=== PATIENT | female | born 1995 | race Caucasian/White ===

== ENCOUNTER 2020-03-12 01:12 | Inpatient (IN) | payer BC ==
[2020-03-12] MEDS: LABETALOL 200 MG TAB PO STA ×2 (01:49→13:16)
[2020-03-12 02:31] LABS: Basophils % (A) 0 %; Eosinophils # (A) 0.2 k/uL (0-0.7); Eosinophils % (A) 1 %; HCT 35.3 % (34.0-46.0); HGB 11.6 gm/dL (11.4-16.0); Lymphocytes # (A) 1.9 k/uL (1.0-4.8); Lymphocytes % (A) 15 %; MCH 26.5 pg (25.0-35.0); MCHC 32.8 g/dL (31.0-37.0); MCV 80.8 fL (80.0-100.0); Mean Platelet Volume 9.9; Monocytes # (A) 0.6 k/uL (0-1.0); Monocytes % (A) 5 %; Neutrophils # (A) 9.8 k/uL (1.3-7.7); Neutrophils % (A) 77 %; Platelet Count 241 k/uL (150-450); RBC 4.37 m/uL (3.80-5.40); RDW 14.1 % (11.5-15.5); WBC 12.6 k/uL (3.8-10.6)
[2020-03-12 02:46] LABS: Uric Acid 6.4 mg/dL (3.7-7.4)
[2020-03-12] MEDS ORDERED: TERBUTALINE 1 MG/ML VIAL SQ PRN (02:59)
[2020-03-12] MEDS ORDERED: LIDOCAINE 0.5% (PF) 5 MG/ML (50 ML SDV) SQ PRN (02:59)
[2020-03-12] MEDS ORDERED: CARBOPROST TROMETHAMINE 250 MCG/ML 1 ML AMP IM PRN (02:59)
[2020-03-12] MEDS ORDERED: OXYTOCIN 10 UNIT/ML 1 ML VIAL IM PRN (02:59)
[2020-03-12] MEDS ORDERED: METHYLERGONOVINE 0.2 MG/ML 1 ML AMP IM PRN (02:59)
[2020-03-12] MEDS: LACTATED RINGERS 1,000 ML IV SCH ×3 (03:15→08:50)
[2020-03-12] MEDS ORDERED: OXYTOCIN 30 UNITS/500 ML NS 30 UNIT in SALINE 1 500ML.BAG IV SCH (07:00)
--- NOTE | 2020-03-12 08:49 | P.HPOB ---
History of Present Illness H&P Date: 03/12/20 Chief Complaint: Strong uterine contractions This is a 24-year-old white female 1 para 0 EDC 03/14/2020 at 39-5/7 weeks' gestation. Patient presented with strong regular uterine contractions from home. Fetus is been active throughout the . She denied vaginal bleeding or fluid leakage. Fetus is been active throughout the . history is significant for gestational hypertension, on labetalol 200 mg twice a day. Blood type is O+, rubella status immune. VDRL testing, urine culture, group B strep cultures, hepatitis B surface antigen, HIV testing, urine culture all negative. One-hour Glucola 95. Current medications vitamins daily, labetalol 200 mg twice daily, and Synthroid 100 MCG's daily. Social history patient is single, she has never been a smoker, she denies alcohol or drug use. Family history significant for dementia, and heart disease. ALLERGIES none known On exam patient is 5 foot 6 inches, 212 pounds blood pressure on admission 169/109, currently 120s over 70s. The general physical exam is within normal limits. No peripheral edema is noted. Chest is clear. Cervix at time of this dictation is 7 cm dilated, 100% effaced, -1 to -2 station, vertex presentation. Spontaneous amniorrhexis occurred approximately 1 hour ago for clear fluid. heart rate is in the 140s with frequent accelerations and occasional variable decelerations. Overall reassuring status. Impression: 39-5/7 weeks intrauterine , chronic hypertensive, hypothyroidism, now in active labor. Plan: Oxytocin augmentation per protocol. Close maternal and surveillance. Internal scalp lead is applied. Epidural was already infusing. Anticipate normal spontaneous vaginal delivery. Past surgical history is negative. Past medical history hypertension, hypothyroidism, ulcerative disease. Review of Systems Constitutional: Reports as per HPI Past Medical History Past Medical History: Hypertension, Thyroid Disorder History of Any Multi-Drug Resistant Organisms: None Reported Past Surgical History: No Surgical Hx Reported Past Anesthesia/Blood Transfusion Reactions: No Reported Reaction Past Psychological History: No Psychological Hx Reported Smoking Status: Never smoker Past Alcohol Use History: None Reported Past Drug Use History: None Reported - Past Family History Father Additional Family Medical History / Comment(s): Heart condition Medications and Allergies Home Medications Medication Instructions Recorded Confirmed Type Labetalol [Trandate] 200 mg PO BID 03/12/20 03/12/20 History Levothyroxine Sodium [Synthroid] 100 mcg PO DAILY 03/12/20 03/12/20 History Allergies Allergy/AdvReac Type Severity Reaction Status Date / Time No Known Allergies Allergy Verified 03/12/20 01:18 Exam Vital Signs Temp Pulse Resp BP Pulse Ox 03/12/20 03:30 98.6 F 91 18 146/85 98 03/12/20 01:40 98.1 F 100 18 169/109 98 Intake and Output 03/11/20 03/12/20 03/12/20 22:59 06:59 14:59 Output Total 200 Balance -200 Output: Urine 200 Other: Weight 96.162 kg See dictation under HPI please Results Result Diagrams: 03/12/20 02:05 Abnormal Lab Results - Last 24 Hours (Table) 03/12/20 Range/Units 02:05 WBC 12.6 H (3.8-10.6) k/uL Neutrophils # 9.8 H (1.3-7.7) k/uL Assessment and Plan Assessment: 39-5/7 weeks intrauterine , spontaneous active labor. Chronic hypertension, hypothyroidism, obesity all noted. Plan: Continue oxytocin augmentation. Continue close maternal and surveillance. Anticipate normal spontaneous vaginal delivery. Time with Patient: Less than 30
--- NOTE | 2020-03-12 13:01 | P.PROBDLV ---
Vaginal Delivery Note - . Vaginal Delivery Note: This is a 24-year-old white female 1 para 0 EDC 03/14/2020 at 39-5/7 weeks' gestation. Patient presented earlier this morning with strong regular uterine contractions from home. Fetus is been active throughout the . is remarkable for history of chronic hypertension, blood pressure is stable on labetalol 200 mg twice daily. Please see admitting history and physical for details. Spontaneous amniorrhexis revealed clear fluid. Oxytocin was started and titrated per hospital protocol. Epidural was placed per her request. All preeclamptic labs were checked and were within normal limits. Patient progressed well through the first stage of labor and became completely dilated at 1150 hours. She began the second stage of labor at that time. Occasional variable decelerations were noted, type I decelerations as well. Excellent overall [id number] variability maintained on an internal scalp lead. With excellent maternal expulsive efforts ultimately the crowned. The perineal body was prepped and draped in usual sterile fashion. Infant delivered occiput anterior and restituted accordingly. There was a large 4 coming loop of umbilical cord that presented with the head as well. The right or anterior shoulder was delivered from underneath the pubic symphysis at which time the oropharynx, nasopharynx, and external nares were all bulb suctioned on the perineal body. Patient was officially delivered of a liveborn female infant at 1237 hours. Umbilical cord was doubly clamped and ligated, she was handed to waiting nurses for evaluation where scores of 9 and 9 at one and 5 minutes respectively were given. Placenta delivered spontaneously, it was inspected and noted to be intact with trivascular cord at 1241 hours. Perineal body was then carefully inspected. The cervix, vagina, perineum, periurethral, and perirectal areas all appeared within the normal limits with the exception of the small first-degree perineal laceration at 6:00. This was injected with 1% lidocaine and repaired in the usual fashion using P suture. Uterus is massaged, firm and below the umbilicus. Total estimated blood loss 400 mL's. weighed 6 lbs. 10 oz. or 3015 g. Patient is allowed to begin the bonding experience in the LDR.
[2020-03-12] MEDS ORDERED: BENZOCAINE/MENTHOL SPRAY 1 GM/SPRAY AEROSOL TOPICAL PRN (13:02)
[2020-03-12] MEDS ORDERED: diphenhydrAMINE 50 MG CAP PO PRN (13:02)
[2020-03-12] MEDS ORDERED: ZOLPIDEM 5 MG TAB PO PRN (13:02)
[2020-03-12] MEDS ORDERED: ACETAMINOPHEN TAB 325 MG TAB PO PRN (13:02)
[2020-03-12] MEDS ORDERED: SIMETHICONE 80 MG CHEWABLE PO PRN (13:02)
[2020-03-12] MEDS ORDERED: diphenhydrAMINE 25 MG CAP PO PRN (13:02)
[2020-03-12] MEDS ORDERED: HYDROCORTISONE 2.5% RECTAL CREAM 30 GM TUBE RECTAL PRN (13:02)
[2020-03-12] MEDS ORDERED: LANOLIN CREAM 5 GM TUBE TOPICAL PRN (13:02)
[2020-03-12] MEDS ORDERED: diphenhydrAMINE 50 MG/ML 1 ML VIAL IVP PRN ×2 (13:02)
[2020-03-12] MEDS ORDERED: WITCH HAZEL 1 EACH MED..PAD TOPICAL PRN (13:02)
[2020-03-12] MEDS ORDERED: OXYTOCIN 20 UNITS/1000 ML NS 1,000 ML IV SCH (13:15)
[2020-03-12] MEDS: IBUPROFEN 600 MG TAB PO PRN (13:16)
[2020-03-12] MEDS: LABETALOL 200 MG TAB PO SCH (20:19)
[2020-03-12] MEDS: SENNOSIDES-DOCUSATE SODIUM 1 EACH TAB PO SCH (20:19)
[2020-03-13 05:54] LABS: Basophils % (A) 0 %; Eosinophils # (A) 0.2 k/uL (0-0.7); Eosinophils % (A) 1 %; HCT 31.9 % (34.0-46.0); HGB 10.4 gm/dL (11.4-16.0); Hypochromasia Slight; Lymphocytes # (A) 3.2 k/uL (1.0-4.8); Lymphocytes % (A) 26 %; MCH 26.9 pg (25.0-35.0); MCHC 32.7 g/dL (31.0-37.0); MCV 82.3 fL (80.0-100.0); Mean Platelet Volume 10.8; Monocytes # (A) 0.5 k/uL (0-1.0); Monocytes % (A) 4 %; Neutrophils # (A) 8.3 k/uL (1.3-7.7); Neutrophils % (A) 66 %; Platelet Count 226 k/uL (150-450); RBC 3.88 m/uL (3.80-5.40); RDW 14.5 % (11.5-15.5); WBC 12.5 k/uL (3.8-10.6)
[2020-03-13] MEDS ORDERED: LEVOTHYROXINE 100 MCG TAB PO SCH (06:30)
--- NOTE | 2020-03-13 07:34 | P.DS ---
Providers Date of admission: 03/12/20 03:00 Expected date of discharge: 03/13/20 Attending physician: Larry Pavon Primary care physician: Stated None Hospital Course: This is a 24-year-old white female 1 para 0 EDC 03/15/2020 at 39-5/7 weeks' gestation. Patient presented in active spontaneous labor from home. Fetus is been active throughout the . is remarkable for chronic hypertension, on labetalol with good blood pressure control. Group strep cultures negative. Rubella status immune. Please see dictated history and physical for details. Artificial amniorrhexis revealed clear fluid. Oxytocin augmentation was started and titrated. Patient went on to deliver vaginally a liveborn female infant with scores of 9 and 9 at one and 5 minutes respectively. weight 3015 g, or 6 lbs. 10 oz. Estimated blood loss recorded of 400 mL with a first- degree perineal laceration easily repaired. Please see dictated delivery note for details. Progress this morning the patient is doing well. She is voiding, ambulating and passing flatus without difficulty. Vital signs are stable and she is afebrile. Fundus is firm and in the midline, symmetric and 18 week size. Extremities are negative for edema. infant is doing well. Patient is judged be in good condition for discharge home. Blood pressure prior to labetalol this morning 150s over 80s. All preeclamptic labs were checked on admission and were within normal limits. Patient will be discharged home later today. She will follow-up with Dr. Pavon in the office in 2 weeks. I've asked her to continue taking her labe talol 200 mg twice daily and to check blood pressures daily at home and to write them down. She will bring them to the office with her in 2 weeks. I have reminded her no intercourse, tampons or douching. She will use [id number] Advil or Aleve, or Motrin as needed for pain. She will call with any fevers shakes or chills, foul smelling or copious lochia, with the passage of large blood clots, with any pain not alleviated by [id number] products, or indeed with any concerns. Patient Condition at Discharge: Good Plan - Discharge Summary Discharge Rx Participant: No New Discharge Prescriptions: No Action Labetalol [Trandate] 200 mg PO BID Levothyroxine Sodium [Synthroid] 100 mcg PO DAILY Discharge Medication List Labetalol [Trandate] 200 mg PO BID 03/12/20 [History] Levothyroxine Sodium [Synthroid] 100 mcg PO DAILY 03/12/20 [History] Follow up Appointment(s)/Referral(s): Larry Pavon MD [STAFF PHYSICIAN] - 2 Weeks Discharge Disposition: HOME SELF-CARE
[2020-03-13] MEDS: LABETALOL 200 MG TAB PO SCH (08:49)
[2020-03-13] MEDS: IBUPROFEN 600 MG TAB PO PRN (08:49)
[2020-03-13] MEDS: SENNOSIDES-DOCUSATE SODIUM 1 EACH TAB PO SCH (08:50)
[2020-03-13 09:34] VITALS: BP 138/87; PULSE 81; RESP 16; TEMP 98.3
== END 2020-03-13 14:00 | disposition home or self-care (01) | DRG 807 ==
LOC: FBPOP 01:12 → 4FBP 03:00
PROVIDERS: ADMIT Obstetrics & Gynecology; ATTEND Obstetrics & Gynecology
PROC: 00HU33Z Insertion of Infusion Device into Spinal Canal, Percutaneous Approach (ICD-10-PCS; principal; 2020-03-12)
PROC: 10E0XZZ Delivery of Products of Conception, External Approach (ICD-10-PCS; principal; 2020-03-12)
PROC: 3E0R3BZ Introduction of Anesthetic Agent into Spinal Canal, Percutaneous Approach (ICD-10-PCS; principal; 2020-03-12)
PROC: 0HQ9XZZ Repair Perineum Skin, External Approach (ICD-10-PCS; principal; 2020-03-12)
DX: O10.92 Unspecified pre-existing hypertension complicating childbirth (principal); Z37.0 Single live birth; E66.9 Obesity, unspecified; E03.9 Hypothyroidism, unspecified; O70.0 First degree perineal laceration during delivery; O99.214 Obesity complicating childbirth; O99.284 Endocrine, nutritional and metabolic diseases complicating childbirth; Z3A.39 39 weeks gestation of pregnancy; O76 Abnormality in fetal heart rate and rhythm complicating labor and delivery; Z79.890 Hormone replacement therapy; Z79.899 Other long term (current) drug therapy; Z81.8 Family history of other mental and behavioral disorders; Z82.49 Family history of ischemic heart disease and other diseases of the circulatory system
CPT/HCPCS: 59025; 84450; 84460; 84550; 85025; 86850; 86900; 86901; 88307; 99213